=== PATIENT | female | born 1980 | race Caucasian/White ===

== ENCOUNTER 2023-12-29 20:03 | Emergency (ER) | payer OTHER ==
[2023-12-29 20:10] VITALS: BP 129/83; PULSE 96; RESP 18; TEMP 97.6
[2023-12-29 20:12] LABS: Glucose,Whole Blood 41 mg/dL (70-110)
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
[2023-12-29 20:26] LABS: Basophils # (A) 0.1 k/uL (0-0.2); Basophils % (A) 1 %; Eosinophils # (A) 0.2 k/uL (0-0.7); Eosinophils % (A) 3 %; HCT 49.1 % (34.0-46.0); HGB 15.9 gm/dL (11.4-16.0); Lymphocytes # (A) 1.5 k/uL (1.0-4.8); Lymphocytes % (A) 16 %; MCH 30.9 pg (25.0-35.0); MCHC 32.3 g/dL (31.0-37.0); MCV 95.6 fL (80.0-100.0); Monocytes # (A) 0.4 k/uL (0-1.0); Monocytes % (A) 5 %; Neutrophils % (A) 75 %; Platelet Count 298 k/uL (150-450); RBC 5.14 m/uL (3.80-5.40); RDW 12.2 % (11.5-15.5); WBC 9.4 k/uL (3.8-10.6)
[2023-12-29 20:36] LABS: ALT 16 U/L (4-34); AST 23 U/L (14-36); African American GFR (CKD) >90 (>60 ml/min/1.73 sqM); Albumin 4.8 g/dL (3.5-5.0); Alcohol <10 mg/dL; Alkaline Phosphatase 57 U/L (38-126); Anion Gap 8 mmol/L; Blood Urea Nitrogen 12 mg/dL (7-17); Calcium 9.7 mg/dL (8.4-10.2); Carbon Dioxide 24 mmol/L (22-30); Chloride 106 mmol/L (98-107); Glucose 85 mg/dL (74-99); INR 0.9 (<1.2); Non-African American GFR(CKD) >90 (>60 ml/min/1.73 sqM); Partial Thromboplastin Time 25.3 sec (22.0-30.0); Potassium 3.4 mmol/L (3.5-5.1); Prothrombin Time 9.8 sec (10.0-12.5); Sodium 138 mmol/L (137-145); Total Bilirubin 0.4 mg/dL (0.2-1.3); Total Protein 7.8 g/dL (6.3-8.2)
[2023-12-29] MEDS: SODIUM CHLORIDE 0.9% 1,000 ML IV STA (20:44)
[2023-12-29] MEDS: ONDANSETRON 4 MG/2 ML VIAL IVP STA (20:47)
[2023-12-29] MEDS: HYDROmorphone 0.5 MG/0.5 ML SYRINGE IVP STA (20:49)
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
[2023-12-29 21:53] LABS: Amphetamine Screen,Urine Detected (NotDetected); Barbiturate Screen,Urine Not Detected (NotDetected); Benzodiazepines Screen,Urine Not Detected (NotDetected); Cocaine Screen,Urine Not Detected (NotDetected); Methadone Screen, Urine Not Detected (NotDetected); Opiate Screen,Urine Not Detected (NotDetected); Oxycodone Screen, Urine Not Detected (NotDetected); Phencyclidine Screen,Urine Not Detected (NotDetected); Tricyclic Antidepressant,Urine Not Detected (NotDetected); Urn Cannabinoid Scrn Not Detected (NotDetected)
[2023-12-29] MEDS: IBUPROFEN 600 MG STARTER PACK 4 TAB BTL PO STA (22:52)
[2023-12-29] MEDS: traMADol 50 MG STARTER PACK 3 TAB BTL PO STA (22:53)
[2023-12-29] MEDS: ONDANSETRON 4 MG ODT STARTER PACK 2 TAB BTL PO STA (22:53)
== END 2023-12-29 22:50 | disposition home or self-care (01) ==
LOC: EC 20:03
DX: S01.01XA Laceration without foreign body of scalp, initial encounter (principal); Z87.891 Personal history of nicotine dependence; V43.52XA Car driver injured in collision with other type car in traffic accident, initial encounter; Y92.410 Unspecified street and highway as the place of occurrence of the external cause
CPT/HCPCS: 36415; 93005; 86900; 86901; 80053; 84484; 85025; 85610; 85730; 86850; 80306; 80320; 72170; 71045; 72125; 70450; 71260; 74177; 99285; 12002; 96365; 96375 ×2; J2405; J0690; S0119; J1170; Q9967